=== PATIENT | female | born 1975 | race Caucasian/White ===

== ENCOUNTER → 2017-11-25 | Outpatient (CLI) | payer BC, OTHER | END | disposition home or self-care (01) | LOC: C.PAPS 17:47 | PROVIDERS: ATTEND Obstetrics & Gynecology | DX: Z01.419 Encounter for gynecological examination (general) (routine) without abnormal findings (principal) ==

== ENCOUNTER → 2017-12-03 | Outpatient (CLI) | payer BC ==
--- NOTE | 2017-12-04 15:10 | MAMMOGRAPHY REPORT ---
BILATERAL DIGITAL DIAGNOSTIC MAMMOGRAM TOMOSYNTHESIS WITH CAD AND TARGETED RIGHT ULTRASOUND: 8 CLINICAL HISTORY: The patient reports a right breast lump for approximately 1 month. 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 TECHNIQUE: Breast tomosynthesis in addition to standard 2D mammography was performed. Current study w as also evaluated with a Computer Aided Detection (CAD) system. Bilateral CC and MLO 2D and tomosynt hesis images were obtained. COMPARISON: Comparison is made to exams dated: 02/26/2012 consultation and 02/26/2012 ultrasound - [facility]. BREAST COMPOSITION: The tissue of both breasts is extremely dense, which lowers the sensitivity of ma mmography. FINDINGS: A triangle marker preeira the site of the palpable lump pointed out by the patient in the right upper o uter quadrant. At the site of the triangle marker there is a partially circumscribed and partially o bscured 16 mm mass, best seen on the CC tomosynthesis images. The remainder of both breasts demonstr ate no suspicious masses, calcifications, or areas of architectural distortion. Targeted ultrasound was performed of the area of the palpable lump pointed out by the patient, in the right breast at approximately 10:00, 3 cm from the nipple. At the site of the palpable lump there i s an oval circumscribed parallel hypoechoic solid mass which measures 1.8 x 0.5 x 1.5 cm. This corre sponds with the mammographic mass and is indeterminant. Recommend ultrasound-guided core needle biop sy for further evaluation. IMPRESSION: ACR BI-RADS CATEGORY 4: SUSPICIOUS, ULTRASOUND ACR BI-RADS CATEGORY 4: SUSPICIOUS Hypoechoic solid circumscribed 1.8 cm mass at the site of the palpable lump pointed out by the patien t in the right 10:00 breast. The mass is indeterminate and ultrasound-guided core needle biopsy is r ecommended for further evaluation. This may represent a fibroadenoma. A phone call was made to the physician's office to confirm faxed results were received. The patient has been verbally notified of the results. She tentatively scheduled the biopsy before l eaving the department. Some breast cancers are not detected with mammography. A negative mammographic report should not myranda y biopsy if a clinically suggestive mass is present. Sapphire Bañuelos M.D. /:12/03/2017 15:00:50 [employer] Operator: RT Marleni(Fadia)(M), [facility] letter sent: Abnormal / OVERALL STUDY BIRADS: 4 Suspicious abnormality
== END | disposition home or self-care (01) ==
LOC: C.MAMM 13:19
PROVIDERS: ATTEND Obstetrics & Gynecology
DX: N63.11 Unspecified lump in the right breast, upper outer quadrant (principal)